=== PATIENT | female | born 1980 | race Two or more races ===

== ENCOUNTER 2020-05-22 03:07 | Emergency (ER) | payer OTHER ==
[~2020-05-22] VITALS: Ht 152.4 cm; Wt 62.6 kg
--- NOTE | 2020-05-22 03:25 | NUR ---
PT CAME TO THE ER FOR LLQ S ABD PAIN WOUND PAIN +WARM +SWELLING X 6 DAYS. PT AAOX4, VSS, RESPIRATIONS EVEN AND UNLABORED ON RA W/ NAD NOTED. PT CONNECTED TO THE MONITOR AND POX
--- NOTE | 2020-05-22 03:50 | NUR ---
CLINIC ASSISTANT AT BEDSIDE FOR BLOOD DRAW
[2020-05-22 03:58] LABS: BASOPHILS # (AUTO) 0.2 /CMM (0.0-0.2); BILIRUBIN,URINE Negative (NEGATIVE); BLOOD, URINE Moderate Ery/uL (NEGATIVE); COLOR,URINE YELLOW (YELLOW); EOSINOPHILS % (AUTO) 1.9 % (0.0-6.0); HEMATOCRIT 32 % (33-45); LEUKOCYTE ESTERASE ,URINE Negative (NEGATIVE); LYMPHOCYTES # (AUTO) 2.8 /CMM (0.8-4.8); LYMPHOCYTES % (AUTO) 36.7 % (20.0-44.0); MEAN CORPUSCULAR HGB CONC 32 g/dl (31.0-36.0); MEAN CORPUSCULAR VOLUME 83 fL (82-100); MONOCYTES # (AUTO) 0.4 /CMM (0.1-1.30); MONOCYTES % (AUTO) 5.3 % (2.0-12.0); NEUTROPHILS # (AUTO) 4.1 /CMM (1.8-8.9); NEUTROPHILS % (AUTO) 54.1 % (43.0-81.0); NITRITE, URINE Negative (NEGATIVE); PH,URINE 7.5 (5.0-8.0); PLATELET COUNT (AUTO) 375 /CMM (150-450); PROTEIN,URINE Negative (NEGATIVE); RED BLOOD CELL COUNT(AUTO) 3.85 MIL/uL (4.0-5.2); UGLUCOSE Negative (NEGATIVE); UROBILINOGEN,URINE 0.2 EU/dL (0.2); WHITE BLOOD COUNT (AUTO) 7.6 K/uL (4.3-11.0)
[2020-05-22 04:08] LABS: CALCIUM, SERUM 9.5 mg/dL (8.5-10.1); CREATININE 1.1 mg/dL (0.6-1.3)
[2020-05-22 04:13] LABS: RBC,URINE 0-2 /HPF (0-2)
[2020-05-22 04:14] LABS: BACTERIA,URINE None seen /HPF (None Seen); SQUAMOUS EPITHELIAL CELL,UR Many /HPF (None Seen); URINE AMORPHOUS PHOSPHATES Many /HPF (None Seen)
[2020-05-22 04:30] LABS: ALBUMIN 4.3 g/dL (3.4-5.0); BILIRUBIN,TOTAL 0.1 mg/dL (0.2-1.0); TOTAL PROTEIN, SERUM 8.8 g/dL (6.4-8.2)
[2020-05-22 05:52] VITALS: BP 141/82
--- NOTE | 2020-05-22 05:52 | NUR ---
Patient discharged to home in stable condition. Written and verbal after care instructions given. Patient verbalizes understanding of instruction. pt. nambulatory with a steady gait
== END 2020-05-22 05:53 | disposition home or self-care (01) ==
LOC: ER 03:10
DX: L03.311 Cellulitis of abdominal wall (principal); F17.200 Nicotine dependence, unspecified, uncomplicated; Z98.890 Other specified postprocedural states
CPT/HCPCS: 36415; 80048-TC; 80076-TC; 81001; 83690-TC; 84703-TC; 85025-TC

== ENCOUNTER 2020-10-14 01:58 | Emergency (ER) | payer OTHER ==
[~2020-10-14] VITALS: Ht 149.9 cm; Wt 60.8 kg
[2020-10-14 02:35] VITALS: BP 150/110
[2020-10-14] MEDS ORDERED: HYDR-4209 PO (02:54)
[2020-10-14] MEDS ORDERED: SULF-11 PO (02:54)
[2020-10-14] MEDS ORDERED: CEPH500C2 PO (02:54)
[2020-10-14] MEDS ORDERED: CEFTRIAXONE 1 G VIAL IM ONE (03:00)
[2020-10-14] MEDS ORDERED: SULFAMETH/TRIMETH 800/160 MG 1 UDTAB TABLET PO ONE (03:00)
[2020-10-14] MEDS ORDERED: LIDOCAINE /MPF 1% VIAL 5 ML VIAL ONE (03:07)
[2020-10-14] MEDS ORDERED: CEFTRIAXONE 1 G VIAL ONE (03:07)
[2020-10-14] MEDS ORDERED: SULFAMETH/TRIMETH 800/160 MG 1 UDTAB TABLET ONE (03:08)
== END 2020-10-14 03:23 | disposition home or self-care (01) ==
LOC: ER 02:04
DX: S83.8X2A Sprain of other specified parts of left knee, initial encounter (principal); L03.116 Cellulitis of left lower limb; F17.200 Nicotine dependence, unspecified, uncomplicated; Z98.890 Other specified postprocedural states; Z79.899 Other long term (current) drug therapy; W01.0XXA Fall on same level from slipping, tripping and stumbling without subsequent striking against object, initial encounter; Y93.89 Activity, other specified; Y92.89 Other specified places as the place of occurrence of the external cause; Y99.8 Other external cause status
CPT/HCPCS: 76882; 96372; 99284; 99406; J0696; J3490

== ENCOUNTER 2022-04-27 16:26 | Emergency (ER) | payer OTHER ==
[~2022-04-27] VITALS: Ht 152.4 cm; Wt 71.2 kg
[~2022-04-27 16:26] MED LIST: CEPH500C2 PO; HYDR-4209 PO; SULF-11 PO
[2022-04-27 16:50] VITALS: BP 161/111
--- NOTE | 2022-04-27 17:30 | NUR ---
AAO x3 Appropriate/responsive GCS-15. Neuro intact Moves all extremities well/purposeful. NO obvious distress
[2022-04-27] MEDS ORDERED: IBUP-1955 PO (18:01)
[2022-04-27] MEDS ORDERED: CYCL5TAB PO (18:01)
--- NOTE | 2022-04-27 18:17 | NUR ---
Patient discharged to home in stable condition. Written and verbal after care instructions given. Patient verbalizes understanding of instruction.
== END 2022-04-27 18:16 | disposition home or self-care (01) ==
LOC: ER 16:30
DX: S29.012A Strain of muscle and tendon of back wall of thorax, initial encounter (principal); F17.200 Nicotine dependence, unspecified, uncomplicated; Z79.899 Other long term (current) drug therapy; V89.2XXA Person injured in unspecified motor-vehicle accident, traffic, initial encounter; Y93.89 Activity, other specified; Y92.89 Other specified places as the place of occurrence of the external cause; Y99.8 Other external cause status

== ENCOUNTER 2025-01-16 07:39 | Emergency (ER) | payer OTHER ==
[~2025-01-16] VITALS: Ht 152.4 cm; Wt 68.0 kg
[~2025-01-16 07:39] MED LIST changes: +CYCL5TAB PO; +HYDR453.3 TP; +IBUP-1955 PO; +[UNRECOGNIZED DRUG - CODE] TOP
[2025-01-16 08:00] VITALS: BP 147/101; TEMP 98; O2SAT 97
[2025-01-16] MEDS ORDERED: LIDOCAINE HCL/MPF 1% 30 ML VIAL IJ ONE (08:03)
[2025-01-16] MEDS ORDERED: LIDOCAINE 2% JEL UROJET 10 ML MM ONE (08:04)
[2025-01-16] MEDS: LIDOCAINE 5% OINT 35.44 GM TUBE TP ONE (08:10)
[2025-01-16] MEDS: LIDOCAINE SOLN 4% 50 ML BOTTLE TP ONE (09:16)
[2025-01-16] MEDS ORDERED: NAPR-1009 PO (09:26)
[2025-01-16] MEDS ORDERED: CEPH-570 PO (09:26)
== END 2025-01-16 09:46 | disposition home or self-care (01) ==
LOC: ER 07:44
DX: N75.0 Cyst of Bartholin's gland (principal); F17.200 Nicotine dependence, unspecified, uncomplicated; E03.9 Hypothyroidism, unspecified; Z79.899 Other long term (current) drug therapy
CPT/HCPCS: 99284; 56420; J3490 ×2; A6403 ×2